=== PATIENT | male | born 1970 | race Caucasian/White ===

== ENCOUNTER 2017-11-01 07:52 | Day surgery (SDC) | payer OTHER ==
[2017-11-01] MEDS ORDERED: LIDOCAINE 100 MG SYRINGE (09:23)
[2017-11-01] MEDS ORDERED: PROPOFOL 40 ML ×2 (09:23→09:42)
== END 2017-11-01 10:55 | disposition home or self-care (01) ==
LOC: GIL 07:52
DX: Z12.11 Encounter for screening for malignant neoplasm of colon (principal); K64.8 Other hemorrhoids; E78.5 Hyperlipidemia, unspecified; Z87.891 Personal history of nicotine dependence
CPT/HCPCS: 45378